=== PATIENT | male | born 1970 | race African-American/Black ===

== ENCOUNTER 2022-05-21 08:40 | Emergency (ER) | payer OTHER, SELFPAY ==
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
[2022-05-21 08:43] VITALS: BP 92/61; PULSE 101; RESP 18; TEMP 36.4; O2SAT 99
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
== END 2022-05-21 09:59 | disposition home or self-care (01) ==
PROVIDERS: Emergency Provider Nurse Practitioner Family
DX: S80.01XA Contusion of right knee, initial encounter (principal); V03.10XA Pedestrian on foot injured in collision with car, pick-up truck or van in traffic accident, initial encounter
CPT/HCPCS: 73562; 99283